=== PATIENT | male | born 1985 ===

== ENCOUNTER 2018-10-04 09:59 | Emergency (ER) | payer BC, OTHER ==
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
[2018-10-04 10:27] VITALS: BP 146/91
[2018-10-04 10:40] LABS: CHLORIDE,CL 103 mmol/L (98-107); SODIUM,NA 141 mmol/L (136-148)
== END 2018-10-04 11:10 | disposition home or self-care (01) ==
LOC: MW.ED 09:59
DX: T65.91XA Toxic effect of unspecified substance, accidental (unintentional), initial encounter (principal); T24.432A Corrosion of unspecified degree of left lower leg, initial encounter; E87.5 Hyperkalemia; Y99.0 Civilian activity done for income or pay
CPT/HCPCS: 36415; 80053; 85025; 93005; 99283-25

== ENCOUNTER 2020-01-17 12:14 | Emergency (ER) | payer BC, OTHER ==
[2020-01-17 12:30] VITALS: PULSE 93
[2020-01-17] MEDS ORDERED: Orphenadrine 60 MG/2 ML Inj IM ONE (12:30)
[2020-01-17] MEDS ORDERED: Ketorolac 60 MG/2 ML SDV IM ONE (12:30)
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
[2020-01-17 13:04] VITALS: BP 153/87
== END 2020-01-17 13:03 | disposition home or self-care (01) ==
LOC: MW.ED 12:14
DX: S39.012A Strain of muscle, fascia and tendon of lower back, initial encounter (principal); X50.9XXA Other and unspecified overexertion or strenuous movements or postures, initial encounter
CPT/HCPCS: 96372; 99283; J1885

== ENCOUNTER 2020-10-24 13:07 | Emergency (ER) | payer OTHER ==
--- NOTE | 2020-10-24 13:20 | EDM.PDOC ---
ED HPI GENERAL MEDICAL PROBLEM - General Stated Complaint: RT ARM INJURY Time Seen by Provider: 10/24/20 13:14 Source of Information: Reports: Patient History Limitations: Reports: No Limitations - History of Present Illness INITIAL COMMENTS - FREE TEXT/NARRATIVE: HISTORY AND PHYSICAL: History of present illness: Patient is a 34-year-old male who presents to the emergency room with complaints of right hand pain along the first, second and third knuckles. He states he slipped on ice and fell on his hand. Most of the pain is on the second and third proximal knuckle, pain with palpation. Denies hitting his head or having any loss of consciousness. Review of systems: As per history of present illness and below otherwise all systems reviewed and negative. Past medical history: As per history of present illness and as reviewed below otherwise noncontributory. Surgical history: As per history of present illness and as reviewed below otherwise noncontributory. Social history: See social history for further information Family history: As per history of present illness and as reviewed below otherwise noncontributory. Physical exam: General: Well developed and well nourished. Alert and orientated x 3. Nontoxic in appearance and in no acute distress. Vital signs are stable and have been reviewed by me. Nursing notes were reviewed. HEENT: Atraumatic, normocephalic, pupils equal and reactive bilaterally, negative for conjunctival pallor or scleral icterus, mucous membranes moist, TMs normal bilaterally, throat clear, neck supple, nontender, trachea midline. No drooling or trismus noted. No meningeal signs. No hot potato voice noted. Lungs: Clear to auscultation bilaterally. No wheezes, rales, or rhonchi. Chest nontender. Normal work of breathing, no accessory muscles used. Heart: S1S2, regular rate and rhythm without overt murmur, gallops, or rubs. No JVD. No peripheral edema Abdomen: Soft, nondistended, nontender. Normoactive bowel sounds. Negative for masses or costovertebral tenderness. Pelvis: Stable nontender. Genitourinary/Rectal: Deferred. Skin: Intact, warm, dry. No lesions or rashes noted. Hematologic: No petechiae or purpra. Mucosa appropriate color and normal nail bed color and refill. Extremities: Atraumatic, moves all extremities per self without difficulty or deficits, negative for cords or calf pain. Neurovascular unremarkable. Neuro: Awake, alert, oriented. Cranial nerves II through XII unremarkable. Cerebellum unremarkable. Motor and sensory unremarkable throughout. Exam nonfocal. Psychiatric: Mood and affect are appropriate. Normal thought process. Answering questions appropriately. Notes: *This patient was seen and evaluated during the 2019 SARS-CoV-2 novel coronavirus pandemic period. Community viral transmission is ongoing at time of this encounter and the emergency department is operating under pandemic response procedures. X-ray shows no acute findings. Old healed fracture deformity of the base of the 5th metacarpal with adjacent small ossicle. I will place patient in a thumb spica splint for immobilization and comfort for hand crush injury. I have talked with the patient about today's findings, in addition to providing specific details for plan of care. Reassessment at the time of disposition demonstrates that the patient is in no acute distress. The patient is stable for discharge, counseling was provided and we discussed in great detail signs and symptoms that would prompt them to return to the Emergency Department. Medication, follow up and supportive care measures were reviewed and discussed. Voices understanding and is agreeable to plan of care. Denies any further questions or concerns at this time. Diagnostics: Hand x-ray Therapeutics: Thumb spica splint Prescription: Tramadol (#15), Ibuprofen Impression: Crush Injury, left hand Plan: 1. You were evaluated today on an emergent basis. Your x-ray shows no acute fractures or dislocations. Rest, ice and elevate as able. Wear the splint over the next few days for comfort. 2. You can alternate Tylenol and ibuprofen as needed for pain and fever management. Tramadol as needed for moderate to severe pain. This medication may cause drowsiness, so do not take while driving or needing to be functioning outside the house. 3. We encourage you to follow up with Orthopedics in the next few days for re- evaluation and further care/management. 4. If your symptoms should worsen, new symptoms develop or any of the signs and symptoms we discussed should arise please return to the emergency room or call 911 (if needed). Definitive disposition and diagnosis as appropriate pending reevaluation and review of above. Right Hand Pain Score (Numeric/FACES): 6 - Related Data Allergies Allergy/AdvReac Type Severity Reaction Status Date / Time No Known Allergies Allergy Verified 10/24/20 13:22 Home Meds: Home Meds . [No Known Home Meds] 10/24/20 [History] Past Medical History - Past Health History Medical/Surgical History: Denies Medical/Surgical History HEENT History: Reports: None Cardiovascular History: Reports: None Respiratory History: Reports: None Gastrointestinal History: Reports: None Genitourinary History: Reports: None Neurological History: Reports: None Psychiatric History: Reports: None Endocrine/Metabolic History: Reports: None Hematologic History: Reports: None Dermatologic History: Reports: None - Infectious Disease History Infectious Disease History: Reports: Chicken Pox - Past Surgical History Other Musculoskeletal Surgeries/Procedures:: right hand, right shoulder, right foot hx fx Social & Family History - Family History Family Medical History: No Pertinent Family History - Caffeine Use Caffeine Use: Reports: Coffee, Energy Drinks, Soda Review of Systems - Review of Systems Review Of Systems: Comprehensive ROS is negative, except as noted in HPI. ED EXAM, GENERAL - Physical Exam Exam: See Below (SEe dictation) Course - Vital Signs Last Recorded V/S: Last Vital Signs Temp 97 F 10/24/20 13:23 Pulse 100 10/24/20 13:23 Resp 18 10/24/20 13:23 BP 146/97 H 10/24/20 13:23 Pulse Ox 95 10/24/20 13:23 - Orders/Labs/Meds Orders: Active Orders 24 hr Category Date Time Status Hand Comp Min 3V Rt [CR] Stat Exams 10/24/20 13:23 Taken Meds: Medications Discontinued Medications Generic Name Dose Route Start Last Admin Trade Name Hoangq PRN Reason Stop Dose Admin Acetaminophen 1,000 mg 10/24/20 13:23 10/24/20 13:36 Acetaminophen 500 Mg Tab PO 10/24/20 13:24 1,000 mg ONETIME ONE Administration Departure - Departure Time of Disposition: 14:05 Disposition: Home, Self-Care 01 Clinical Impression: Crush injury of hand Qualifiers: Encounter type: initial encounter Laterality: left Qualified Code(s): S67.22XA - Crushing injury of left hand, initial encounter - Discharge Information Instructions: Crush Injury of the Hand, [id number] Additional Instructions: The following information is given to patients seen in the emergency department who are being discharged to home. This information is to outline your options for follow-up care. We provide all patients seen in our emergency department with a follow-up referral. The need for follow-up, as well as the timing and circumstances, are variable depending upon the specifics of your emergency department visit. If you don't have a primary care physician on staff, we will provide you with a referral. We always advise you to contact your personal physician following an emergency department visit to inform them of the circumstance of the visit and for follow-up with them and/or the need for any referrals to a consulting specialist. The emergency department will also refer you to a specialist when appropriate. This referral assures that you have the opportunity for follow-up care with a specialist. All of these measure are taken in an effort to provide you with optimal care, which includes your follow-up. Under all circumstances we always encourage you to contact your private physician who remains a resource for coordinating your care. When calling for follow-up care, please make the office aware that this follow-up is from your recent emergency room visit. If for any reason you are refused follow-up, please contact the [facility] Emergency Department at and asked to speak to the emergency department charge nurse. [facility] [address], [address] [place] [address] [facility] [address] [place] [address] Thank you for choosing the [facility] emergency department in [place] for your medical needs today. It was a pleasure caring for you. Today you were seen in the emergency department for hand injury. 1. You were evaluated today on an emergent basis. Your x-ray shows no acute fractures or dislocations. Rest, ice and elevate as able. Wear the splint over the next few days for comfort. 2. You can alternate Tylenol and ibuprofen as needed for pain and fever management. Tramadol as needed for moderate to severe pain. This medication may cause drowsiness, so do not take while driving or needing to be functioning outside the house. 3. We encourage you to follow up with Orthopedics in the next few days for re- evaluation and further care/management. 4. If your symptoms should worsen, new symptoms develop or any of the signs and symptoms we discussed should arise please return to the emergency room or call 911 (if needed). Sepsis Event Note (ED) - Focused Exam Vital Signs: Vital Signs Temp Pulse Resp BP Pulse Ox 10/24/20 13:23 97 F 100 18 146/97 H 95 - My Orders Last 24 Hours: My Active Orders 10/24/20 13:23 Hand Comp Min 3V Rt [CR] Stat - Assessment/Plan Last 24 Hours: My Active Orders 10/24/20 13:23 Hand Comp Min 3V Rt [CR] Stat
[2020-10-24] MEDS ORDERED: Acetaminophen 500 MG Tab PO ONE (13:23)
--- NOTE | 2020-10-24 14:01 | CR ---
Indication: Fall. Technique: Right hand 3 views. Comparison: None. Findings: No acute fracture or dislocation. Joint spaces are well preserved. Old healed fracture deformity of the base of the 5th metacarpal. There is a chronic appearing ossicle adjacent to the base of the 5th metacarpal. Soft tissues are unremarkable. Impression: 1. No acute findings. 2. Old healed fracture deformity of the base of the 5th metacarpal with adjacent small ossicle. Dictated by Ann Oneill MD @ Oct 24 2020 1:56PM Signed by Dr. Ann Oneill @ Oct 24 2020 2:00PM
[2020-10-24 14:34] VITALS: BP 163/97; PULSE 99
== END 2020-10-24 14:35 | disposition home or self-care (01) ==
LOC: MW.ED 13:07
DX: S67.22XA Crushing injury of left hand, initial encounter (principal); W00.0XXA Fall on same level due to ice and snow, initial encounter
CPT/HCPCS: 73130; 99283; A9270

== ENCOUNTER 2021-08-01 23:44 | Emergency (ER) | payer OTHER, MEDICAID ==
[2021-08-02 02:42] VITALS: BP 160/110; PULSE 78
[2021-08-02] MEDS ORDERED: Ketorolac 30 MG/ML SDV IM ONE (02:45)
[2021-08-02 03:28] LABS: CORONAVIRUS COVID-19 NAA NEGATIVE (NEGATIVE); INFLUENZA A NAA NEGATIVE (NEGATIVE); INFLUENZA B NAA NEGATIVE (NEGATIVE)
== END 2021-08-02 03:53 | disposition home or self-care (01) ==
LOC: MW.ED 23:44
DX: S39.012A Strain of muscle, fascia and tendon of lower back, initial encounter (principal); B34.9 Viral infection, unspecified; E66.9 Obesity, unspecified; Z68.42 Body mass index [BMI] 45.0-49.9, adult
CPT/HCPCS: 0240U; 81003; 96372; 99284; J1885